=== PATIENT | female | born 1975 | race Caucasian/White ===

== ENCOUNTER → 2017-01-29 | Outpatient (CLI) | payer OTHER ==
--- NOTE | 2017-01-29 08:36 | US ---
EXAMINATION TYPE: US thyroid st tissue head/neck DATE OF EXAM: 01/29/2017 COMPARISON: NONE CLINICAL HISTORY: L04.0 Acute lymphadenitis. Patient states that her right neck/shoulder area had swollen up and she could not see her collar bone . Patient pointed out area of concern and scanning was done directly over this area, as well as scann ing of the left side for comparison purposes. No definite abnormality noted. IMPRESSION: 1. No abnormality noted by ultrasound. If symptoms persist consider CT scan.
== END | disposition home or self-care (01) ==
LOC: RADUSWWP 07:35
PROVIDERS: ATTEND Family Medicine
DX: L04.0 Acute lymphadenitis of face, head and neck (principal)
CPT/HCPCS: 76536

== ENCOUNTER → 2018-03-06 | Outpatient (CLI) | payer OTHER | END | disposition home or self-care (01) | LOC: LABWHC1 12:12 | PROVIDERS: ATTEND Obstetrics & Gynecology | DX: N91.2 Amenorrhea, unspecified (principal) | CPT/HCPCS: 36415; 84702 ==

== ENCOUNTER → 2020-02-28 | Outpatient (CLI) | payer BC | END | disposition home or self-care (01) | LOC: LABWHC1 12:34 | PROVIDERS: ATTEND Family Medicine | DX: Z20.828 Contact with and (suspected) exposure to other viral communicable diseases (principal) | CPT/HCPCS: U0003; C9803 ==

== ENCOUNTER → 2020-03-23 | Outpatient (CLI) | payer BC | END | disposition home or self-care (01) | LOC: LABWHC1 10:08 | PROVIDERS: ATTEND Family Medicine | DX: Z20.89 Contact with and (suspected) exposure to other communicable diseases (principal); R07.0 Pain in throat | CPT/HCPCS: U0003; C9803 ==

== ENCOUNTER → 2021-03-26 | Outpatient (CLI) | payer BC ==
--- NOTE | 2021-03-26 09:20 | CT ---
EXAMINATION TYPE: CT sinus w con DATE OF EXAM: 03/26/2021 COMPARISON: None HISTORY: cough with drainage and right sided facial pain CT DLP: 605.9 mGycm Contrast-enhanced CT of the paranasal sinuses was performed in the axial and coronal planes. Bone an d soft tissue settings are submitted. The paranasal sinuses demonstrate normal aeration and development. The paranasal sinuses are free of mucosal thickening or air fluid level. The osteal meatal units are patent bilaterally. The nasal septum is midline. No bony destructive changes are seen within the field of view. IMPRESSION: Normal unenhanced CT of the paranasal sinuses.
--- NOTE | 2021-03-26 09:24 | CT ---
EXAMINATION TYPE: CT chest w con DATE OF EXAM: 03/26/2021 COMPARISON: HISTORY: Cough with blood in sputum and Left upper chest discomfort x's [address] DLP: 429.5 mGycm Automated exposure control for dose reduction was used. CONTRAST: CT scan of the chest is performed with IV Contrast, patient injected with 100 mL of Isovue 300. FINDINGS: LUNGS: The lungs are grossly clear, there is no concerning parenchymal mass or nodule identified. T here is no pleural effusion or pneumothorax seen. The tracheobronchial tree is patent. MEDIASTINUM: There are no greater than 1 cm hilar or mediastinal lymph nodes. No pericardial effusi on is seen. Thoracic aorta is of normal caliber. The heart is not enlarged. UPPER ABDOMEN: No significant abnormality appreciated. OTHER: No additional significant abnormality is seen. IMPRESSION: No discrete abnormality seen.
== END | disposition home or self-care (01) ==
LOC: RADCTMAIN 08:22
PROVIDERS: ATTEND Family Medicine
DX: R04.2 Hemoptysis (principal); R07.89 Other chest pain; R51.9 Headache, unspecified
CPT/HCPCS: 71260; 70487; Q9967

== ENCOUNTER → 2021-05-18 | Outpatient (CLI) | payer BC ==
[2021-05-18 20:01] LABS: Immunoglobulin E 3.73 IU/mL (0.00-114.00); Immunoglobulin E 3.76 IU/mL (0.00-114.00)
== END | disposition home or self-care (01) ==
LOC: LABWHC1 09:57
PROVIDERS: ATTEND Internal Medicine Critical Care Medicine
DX: R05.9 Cough, unspecified (principal)
CPT/HCPCS: 36415; 82785; 85008; 86003

== ENCOUNTER 2021-05-23 10:47 | Day surgery (SDC) | payer BC ==
[2021-05-22 12:45] VITALS: BMI 27.0
[~2021-05-23 10:47] MED LIST: ALBUTEROL NEB (CONC) 2.5 MG/0.5 ML INHALATION ONE; HYDROmorphone 0.5 MG/0.5 ML SYRINGE IVP PRN; LACTATED RINGERS 1,000 ML IV SCH; LIDOCAINE 1% (10MG/ML) FOR IV START INTRADERMA PRN; LIDOCAINE 2% (PF) 20 MG/ML 5 ML VIAL INHALATION ONE; LIDOCAINE VISCOUS 300 MG/15 ML CUP MUCOUS MEM ONE; ONDANSETRON 4 MG/2 ML VIAL IVP PRN
[2021-05-23] MEDS ORDERED: KETAMINE 10 MG/ML 20 ML VIAL ONE (11:44)
[2021-05-23] MEDS ORDERED: MIDAZOLAM 2 MG/2 ML VIAL ONE (11:44)
[2021-05-23] MEDS ORDERED: LIDOCAINE 1% INJ 10MG/ML (20 ML MDV) ONE (11:44)
[2021-05-23] MEDS ORDERED: PROPOFOL 10 MG/ML 20 ML VIAL IV ONE (11:44)
[2021-05-23] MEDS ORDERED: LIDOCAINE 2% INJ 20 MG/ML INTRATRACH ONE (11:55)
[2021-05-23 12:19] VITALS: TEMP 97.8
[2021-05-23] MEDS ORDERED: diphenhydrAMINE 50 MG/ML 1 ML VIAL IVP ONE (12:27)
[2021-05-23 13:50] VITALS: BP 112/70; PULSE 92; RESP 18
[2021-05-23 16:33] LABS: Appearance,BF Clear; Nucleated Cells, Body Fluid 8 /uL; RBC, Body Fluid 41 /uL
--- NOTE | 2021-05-23 20:47 | PCN ---
PROCEDURE NOTE PROCEDURE PERFORMED: A bronchoscopy airway examination, therapeutic lavage, BAL right middle lobe. PREOP DIAGNOSIS: Chronic cough. POSTOP DIAGNOSIS: Chronic cough. OPERATORS: Dr. Shepherd. There was informed consent and universal timeout. ANESTHESIA: General anesthesia. DESCRIPTION OF PROCEDURE: The patient's procedure was done in room #1. Again there was informed consent and universal timeout. After the patient was adequately sedated and being fully monitored, the bronchoscope was inserted through the right nostril. It passed through the right nasopharynx into the oropharynx. The hypopharynx was identified and topicalized. The anterior commissure, true cords, false cords, arytenoids, piriform sinuses, right and left vallecula, epiglottis, all appeared normal. After topicalization, bronchoscope was pushed through the glottic opening into the trachea. The trachea appeared normal as well. Tracheal linnette was sharp. The right and left mainstem were topicalized. The right upper lobe and its 3 segments, right middle lobe and its 2 segments, right lower lobe and its 5 segments, left upper lobe proper and its 2 segments, lingula and its 2 segments and left lower lobe and its 4 segments all were relatively normal save for some mild to moderate airway hyperemia and erythema. The patient had some very mild mucosal friability. There was no distinct mass or tumor. There were minimal secretions. Most of them were thin and foamy. Nothing was purulent. The bronchoscope was wedged into the right middle lobe. We did a BAL. Thirty mL of fluid was recovered. It was sent to be analyzed including cytology, and differential and cultures. The patient tolerated the procedure well. The patient will be recovered. There was no immediate complication. I did speak to the patient's [id number], who brought her to the hospital. MMODL / IJN: [id number] /
== END 2021-05-23 13:45 | disposition home or self-care (01) ==
LOC: ORWHC2ENDO 10:47
PROVIDERS: ATTEND Internal Medicine Critical Care Medicine
DX: J45.909 Unspecified asthma, uncomplicated (principal); R05.3 Chronic cough; Z79.51 Long term (current) use of inhaled steroids; Z79.899 Other long term (current) drug therapy; Z98.890 Other specified postprocedural states; F41.9 Anxiety disorder, unspecified; Z88.2 Allergy status to sulfonamides; Z91.040 Latex allergy status; Z91.048 Other nonmedicinal substance allergy status
CPT/HCPCS: 81025; 87798 ×3; 87496; 87498; 87529; 88108; 88305; 89050; 87252; 87502; 87634; 87070; 87205; 87116; 87102; 87206; 31624; J2001 ×2; J2250; J1200; J2704

== ENCOUNTER 2021-07-31 07:47 | Emergency (ER) | payer BC ==
[2021-07-31 07:53] VITALS: BP 122/80; PULSE 74; RESP 16; TEMP 98.6
[2021-07-31] MEDS ORDERED: ASPIRIN 81 MG PO STA (07:54)
[2021-07-31] MEDS ORDERED: KETOROLAC 15 MG/ML 1 ML VIAL IVP STA (08:11)
--- NOTE | 2021-07-31 08:21 | ED ---
General Adult HPI - General Chief complaint: Chest Pain Stated complaint: chest pain Time Seen by Provider: 07/31/21 07:53 Source: patient, RN notes reviewed, old records reviewed Mode of arrival: ambulatory Limitations: no limitations - History of Present Illness Initial comments: Patient is a 46-year-old female with no significant past medical history who presents emergency Department concerned regarding a 7 day history of a left- sided chest pain. She describes it as a dull sensation located in the left side of her chest that radiates to her left arm intermittently. No known palliative factors. She states that laying down does seem to make the chest pain slightly worse. She states he never gets more than a 3 out of 10. Also endorses a non productive cough with the pain. She recently did get a "lung biopsy" through 4 months ago. I was negative. There were searching for signs of chronic infection. She denies any productive cough. Patient was vaccinated for COVID- 19 received a booster. No fevers or chills. Shortness of breath and coughing. Denies any abdominal complaints including pain, nausea, vomiting. No diarrhea. No weakness or numbness. Presents emergency department for further evaluation regarding the chest pain. Denies being on hormonal therapy, denies hemoptysis. No history of blood clots. Does endorse occasional ankle swelling which she has currently. Denies any orthopnea or PND. Has never been worked up for cardiac etiology previously, and denies any history of early onset cardiac disease in family members. PCP sent her here as there is concern for possible pericarditis. - Related Data Home Medications Medication Instructions Recorded Confirmed Budesonide/Glycopyr/Formoterol 2 puff INHALATION RT-BID 07/31/21 07/31/21 [Breztri Aerosphere Inhaler] Ibuprofen [Motrin Ib] 600 mg PO Q8H PRN 07/31/21 07/31/21 Allergies Allergy/AdvReac Type Severity Reaction Status Date / Time Latex, Natural Rubber Allergy Rash/Hives Verified 07/31/21 08:54 Sulfa (Sulfonamide Allergy Rash/Hives Verified 07/31/21 08:54 Antibiotics) Review of Systems ROS Statement: Those systems with pertinent positive or pertinent negative responses have been documented in the HPI. Review of Systems: CONST: Denies fever EYES: Denies blurry vision ENT: Denies nasal congestion C/V: Endorses chest pain RESP: Denies shortness of breath GI: Denies abdominal pain : Denies dysuria SKIN: Denies rash. MSK: Denies joint pain. NEURO: Denies headache ROS Other: All systems not noted in ROS Statement are negative. Past Medical History Past Medical History: Asthma History of Any Multi-Drug Resistant Organisms: None Reported Past Surgical History: Tonsillectomy Additional Past Surgical History / Comment(s): Nose surgery, uterine fibroids re moved Past Psychological History: No Psychological Hx Reported Smoking Status: Never smoker Past Alcohol Use History: None Reported Past Drug Use History: None Reported General Exam - General Exam Comments Initial Comments: General: Appears in no acute distress. HEAD: Normal with no signs of head trauma. EYES: PERRLA, EOMI, conjunctiva normal, no discharge. ENT: Hearing grossly intact, normal oropharynx. RESPIRATORY: Clear breath sounds bilaterally. No wheezes, rales, or rhonchi. C/V: Regular rate and rhythm. S1 and S2 auscultated, no peripheral pitting edema, peripheral pulses 2+ and intact throughout. No friction rub. ABD: Abd is soft, nontender, nondistended EXT: Normal range of motion, no obvious deformity SKIN: No rashes or lesions observed on exposed skin. NEURO: Alert and oriented 4. Limitations: no limitations Course Vital Signs 07/31/21 07:48 Temperature 98.6 F Pulse Rate 74 Respiratory 16 Rate Blood Pressure 122/80 O2 Sat by Pulse 100 Oximetry Medical Decision Making - Medical Decision Making Based on the patient's presentation and physical exam, I'm concerned for acute cardio pulmonary etiology for her current chest pain. We will obtain a cardiac screening testing including EKG, troponin, BNP, d-dimer as well as chest x-ray. She'll be given Toradol as well as aspirin for pain. Does not appear to be muscular skeletal pain. There has been ongoing for a week, and a single troponin should be sufficient. She was in agreement this plan. Patient is otherwise low risk. She'll be given an aspirin here in the department. Patient's EKG shows no signs of acute ischemia. Chest x-ray showed no acute cardio pulmonary process. Laboratory studies were remarkable for a d-dimer within normal limits, and undetectable troponin, as well as a BNP within normal limits. The remainder of the labs are unremarkable. On reevaluation, patient reports some improvement. No Changes of vital signs which have been within normal limits and stable throughout her stay. I discussed the results of laboratory studies and imaging with her. She was in agreement with this plan. I discussed with her she likely will require follow- up with cardiology eventually, however should follow up with her PCP first. She was in agreement this plan. Heart score is 0. Patient will continue to use [id number] analgesia for her pain. I instructed the patient to follow up with their PCP in the next 3 days. I explained that the patient should return to the emergency department if they experience any worsening symptoms. Strict return precautions were discussed with the patient. The patient expressed understanding of these instructions. I answered all questions that the patient had. The patient was discharged home in good condition with their prescriptions and follow up information. - Lab Data Result diagrams: 07/31/21 08:21 07/31/21 08:21 Lab Results 07/31/21 07/31/21 07/31/21 Range/Units 08:21 08:21 08:21 WBC 4.9 (3.8-10.6) k/uL RBC 4.22 (3.80-5.40) m/uL Hgb 13.5 (11.4-16.0) gm/dL Hct 40.3 (34.0-46.0) % MCV 95.3 (80.0-100.0) fL MCH 31.9 (25.0-35.0) pg MCHC 33.4 (31.0-37.0) g/dL RDW 12.9 (11.5-15.5) % Plt Count 309 (150-450) k/uL MPV 6.9 Neutrophils % 56 % Lymphocytes % 35 % Monocytes % 5 % Eosinophils % 2 % Basophils % 1 % Neutrophils # 2.7 (1.3-7.7) k/uL Lymphocytes # 1.7 (1.0-4.8) k/uL Monocytes # 0.3 (0-1.0) k/uL Eosinophils # 0.1 (0-0.7) k/uL Basophils # 0.0 (0-0.2) k/uL PT 10.8 (9.0-12.0) sec INR 1.0 (<1.2) APTT 24.1 (22.0-30.0) sec D-Dimer 0.21 (<0.60) mg/L FEU Sodium 137 (137-145) mmol/L Potassium 4.4 (3.5-5.1) mmol/L Chloride 107 (98-107) mmol/L Carbon Dioxide 21 L (22-30) mmol/L Anion Gap 9 mmol/L BUN 13 (7-17) mg/dL Creatinine 0.80 (0.52-1.04) mg/dL Est GFR (CKD-EPI)AfAm >90 (>60 ml/min/1.73 sqM) Est GFR (CKD-EPI)NonAf 90 (>60 ml/min/1.73 sqM) Glucose 89 (74-99) mg/dL Calcium 9.6 (8.4-10.2) mg/dL Magnesium 1.8 (1.6-2.3) mg/dL Total Bilirubin 0.5 (0.2-1.3) mg/dL AST 24 (14-36) U/L ALT 11 (4-34) U/L Alkaline Phosphatase 55 (38-126) U/L Troponin I (0.000-0.034) ng/mL NT-Pro-B Natriuret Pep pg/mL Total Protein 7.2 (6.3-8.2) g/dL Albumin 4.1 (3.5-5.0) g/dL HCG, Qual Not Detected 07/31/21 07/31/21 Range/Units 08:21 08:22 WBC (3.8-10.6) k/uL RBC (3.80-5.40) m/uL Hgb (11.4-16.0) gm/dL Hct (34.0-46.0) % MCV (80.0-100.0) fL MCH (25.0-35.0) pg MCHC (31.0-37.0) g/dL RDW (11.5-15.5) % Plt Count (150-450) k/uL MPV Neutrophils % % Lymphocytes % % Monocytes % % Eosinophils % % Basophils % % Neutrophils # (1.3-7.7) k/uL Lymphocytes # (1.0-4.8) k/uL Monocytes # (0-1.0) k/uL Eosinophils # (0-0.7) k/uL Basophils # (0-0.2) k/uL PT (9.0-12.0) sec INR (<1.2) APTT (22.0-30.0) sec D-Dimer (<0.60) mg/L FEU Sodium (137-145) mmol/L Potassium (3.5-5.1) mmol/L Chloride (98-107) mmol/L Carbon Dioxide (22-30) mmol/L Anion Gap mmol/L BUN (7-17) mg/dL Creatinine (0.52-1.04) mg/dL Est GFR (CKD-EPI)AfAm (>60 ml/min/1.73 sqM) Est GFR (CKD-EPI)NonAf (>60 ml/min/1.73 sqM) Glucose (74-99) mg/dL Calcium (8.4-10.2) mg/dL Magnesium (1.6-2.3) mg/dL Total Bilirubin (0.2-1.3) mg/dL AST (14-36) U/L ALT (4-34) U/L Alkaline Phosphatase (38-126) U/L Troponin I <0.012 (0.000-0.034) ng/mL NT-Pro-B Natriuret Pep 142 pg/mL Total Protein (6.3-8.2) g/dL Albumin (3.5-5.0) g/dL HCG, Qual - EKG Data -: EKG Interpreted by Me EKG Comments: 12-lead Electrocardiogram Interpretation Note EKG was reviewed and interpreted by myself. 12-lead ECG performed at 0800 is interpreted by me as revealing normal sinus rhythm at a rate of 90 beats per minute. [place] is normal. MO interval is 152 ms, QRS duration is 96 ms, QTc is 409 ms.. There were no ST or T wave abnormalities to suggest myocardial ischemia or injury. R wave progression across the precordium was satisfactory. By my interpretation this EKG is non-diagnostic for acute ischemia. Disposition Clinical Impression: Chest pain of unknown etiology Disposition: HOME SELF-CARE Condition: Good Instructions (If sedation given, give patient instructions): Chest Pain (ED) Is patient prescribed a controlled substance at d/c from ED?: No Referrals: Maryellen Cerda MD [Primary Care Provider] - 1-2 days
[2021-07-31 08:39] LABS: Basophils % (A) 1 %; Eosinophils # (A) 0.1 k/uL (0-0.7); Eosinophils % (A) 2 %; HCT 40.3 % (34.0-46.0); HGB 13.5 gm/dL (11.4-16.0); Lymphocytes # (A) 1.7 k/uL (1.0-4.8); Lymphocytes % (A) 35 %; MCH 31.9 pg (25.0-35.0); MCHC 33.4 g/dL (31.0-37.0); MCV 95.3 fL (80.0-100.0); Mean Platelet Volume 6.9; Monocytes # (A) 0.3 k/uL (0-1.0); Monocytes % (A) 5 %; Neutrophils # (A) 2.7 k/uL (1.3-7.7); Neutrophils % (A) 56 %; Platelet Count 309 k/uL (150-450); RBC 4.22 m/uL (3.80-5.40); RDW 12.9 % (11.5-15.5); WBC 4.9 k/uL (3.8-10.6)
[2021-07-31 08:49] LABS: ALT 11 U/L (4-34); AST 24 U/L (14-36); African American GFR (CKD) >90 (>60 ml/min/1.73 sqM); Albumin 4.1 g/dL (3.5-5.0); Alkaline Phosphatase 55 U/L (38-126); Anion Gap 9 mmol/L; Blood Urea Nitrogen 13 mg/dL (7-17); Calcium 9.6 mg/dL (8.4-10.2); Carbon Dioxide 21 mmol/L (22-30); Chloride 107 mmol/L (98-107); Glucose 89 mg/dL (74-99); Magnesium 1.8 mg/dL (1.6-2.3); Non-African American GFR(CKD) 90 (>60 ml/min/1.73 sqM); Potassium 4.4 mmol/L (3.5-5.1); Sodium 137 mmol/L (137-145); Total Bilirubin 0.5 mg/dL (0.2-1.3); Total Protein 7.2 g/dL (6.3-8.2)
[2021-07-31 08:51] LABS: HCG,Qualitative Serum Not Detected
--- NOTE | 2021-07-31 08:51 | XR ---
EXAMINATION TYPE: XR chest 2V DATE OF EXAM: 07/31/2021 COMPARISON: CT dated 03/26/2021 HISTORY: Chest pain TECHNIQUE: Frontal and lateral views of the chest are obtained. FINDINGS: Grossly unremarkable lungs. No sizable pleural effusion or definite pneumothorax. No cardiomegaly. Un remarkable bony thoracic cage. IMPRESSION: No significant abnormality identified.
[2021-07-31 08:56] LABS: Partial Thromboplastin Time 24.1 sec (22.0-30.0); Prothrombin Time 10.8 sec (9.0-12.0)
== END 2021-07-31 10:15 | disposition home or self-care (01) ==
LOC: EC 07:47
DX: R07.89 Other chest pain (principal); J45.909 Unspecified asthma, uncomplicated; Z91.040 Latex allergy status; Z88.2 Allergy status to sulfonamides
CPT/HCPCS: 99285; 96374; 36415; 93005; 85379; 83880; 80053; 83735; 84484; 85025; 85610; 85730; 84703; 71046; J1885

== ENCOUNTER → 2022-02-27 | Outpatient (CLI) | payer BC ==
--- NOTE | 2022-02-27 08:36 | US ---
EXAMINATION TYPE: US thyroid st tissue head/neck DATE OF EXAM: 02/27/2022 COMPARISON: US 2017 CLINICAL HISTORY: E07.9 DISORDER OF THYROID, UNSPECIFIED. Right neck area of tenderness x 6 months GLAND SIZE: Right Lobe: 5.2 x 1.2 x 1.5 cm Overall Parenchyma: homogenous Left Lobe: 5.0 x 1.3 x 1.6 cm Overall Parenchyma: homogeneous Isthmus Thickness: 0.3 cm NODULES RIGHT: # of nodules measured on right: 1 1. 0.8 X 0.5 x 1.0 cm, mid , solid or almost completely solid, isoechoic nodule, which is wider angela n tall, with ill-defined margins, without echogenic foci. Prior size: no previous LEFT: # of nodules measured on left: 1 1. 0.7 X 0.4 x 0.5 cm, upper lateral, cystic or almost completely cystic, anechoic nodule, which is wider than tall, with smooth margins, without echogenic foci. Prior size: no previous ISTHMUS: # of nodules measured in the isthmus: 0 Bilateral neck scanned, 2.0 x 0.7 x 1.6cm lymph node seen right neck at patient's area of concern, le ft neck scanned for comparison - 1.9 x 0.8 x 1.3cm lymph node seen. IMPRESSION: 1. Nonspecific thyroid nodularity subcentimeter in size. 2. Mildly prominent lymph nodes within the neck. Correlate clinically. Consider CT if felt to be pierce cated.
== END | disposition home or self-care (01) ==
LOC: RADUSWWP 07:35
PROVIDERS: ATTEND Family Medicine
DX: E07.9 Disorder of thyroid, unspecified (principal)
CPT/HCPCS: 76536

== ENCOUNTER → 2022-12-19 | Outpatient (CLI) | payer BC ==
--- NOTE | 2022-12-20 08:09 | US ---
EXAMINATION TYPE: US thyroid st tissue head/neck DATE OF EXAM: 12/19/2022 COMPARISON: 02/27/22 CLINICAL INDICATION: Female, 47 years old with history of R59.9 ENLARGED LYMPHNODES; enlarged lymph n odes GLAND SIZE: Right Lobe: 5.4 x 1.6 x 1.3 cm Overall Parenchyma: homogenous Left Lobe: 4.9 x 1.6 x 1.2 cm Overall Parenchyma: homogeneous Isthmus Thickness: 0.25 cm NODULES RIGHT: # of nodules measured on right: 1 1. 0.9 X 0.7 x 0.5 cm, mid mid, solid or almost completely solid, isoechoic nodule, which is wider than tall, with ill-defined margins, without echogenic foci. TR 3 Prior size: 0.8 x 0.9 x 0.5 cm LEFT: # of nodules measured on left: 0 ISTHMUS: # of nodules measured in the isthmus: 0 Bilateral neck scanned, no evidence of lymphadenopathy. IMPRESSION: 1. Mildly suspicious nodule. Consider follow-up in one year 2017 ACR TI-RADS LEVEL: TR-RADS 3 - Mildly Suspicious: Follow if > 1.5 cm, FNA if > 2.5 cm *Highest TI-RADS level nodule reported
== END | disposition home or self-care (01) ==
LOC: RADUSWWP 16:50
PROVIDERS: ATTEND Family Medicine
DX: E04.1 Nontoxic single thyroid nodule (principal); R59.9 Enlarged lymph nodes, unspecified
CPT/HCPCS: 76536